=== PATIENT | female | born 1975 | race American Indian/Alaskan Native ===

== ENCOUNTER 2021-05-04 18:24 | Emergency (ER) | payer MEDICAID ==
[2021-05-04] MEDS ORDERED: FAMOTIDINE 20 MG TAB PO ONE (19:58)
[2021-05-04] MEDS ORDERED: ALUM-MAG HYDROXIDE-SIMETHICONE 200-200-20MG/5ML ORAL LIQD 30 ML PO ONE (19:58)
[2021-05-04] MEDS ORDERED: ASPIRIN 81 MG TAB CHEW PO ONE (19:59)
--- NOTE | 2021-05-04 20:35 | Emergency Department Report ---
ED Abdominal Pain HPI - General Chief Complaint: Chest Pain Stated Complaint: CHEST PAINS, STOMACH PUI?: No Source: patient Mode of arrival: Ambulatory Limitations: No Limitations - History of Present Illness Initial Comments: Patient is a 45-year-old -[place] female with past medical history of GERD who presents to the ED with complaint of acute onset persistent epigastric pain and pressure, radiating to the substernal chest wall and to her throat for the last 3 days. Patient states that the symptoms are worsened with food. Patient also complains of nausea and lack of appetite. Patient described the pain as burning and pressure-like with some esophageal spasm which she perceives as palpitations. Patient denies fever, chills, cough, vomiting, shortness of breath, dizziness, syncope, headache, back pain, diaphoresis, diarrhea or neck pain. Patient states that she usually takes Rain-Larue and Pepto-Bismol with no relief. MD Complaint: abdominal pain (Epigastric pain), other (Substernal chest pain with nausea) -: Sudden, days(s) (3) Location: epigastric Radiation: chest Migration to: epigastric, other (Substernal chest ) Severity scale (0 -10): 7 Quality: aching, burning, other (Pressure-like) Consistency: constant Improves With: nothing Worsens With: eating Associated Symptoms: denies other symptoms, nausea, anorexia. denies: vomiting, diarrhea, fever, chills, constipation, dysuria, hematemesis, hematochezia, melena, hematuria Treatments Prior to Arrival: NSAIDs - Related Data LMP Date: 04/09/21 Previous Rx's Medication Instructions Recorded Last Taken Type Amoxicillin [Amoxicillin TAB] 875 mg PO Q12H #20 tablet 05/04/21 Unknown Rx Famotidine [Pepcid] 20 mg PO BID #60 tablet 05/04/21 Unknown Rx Ibuprofen [Motrin] 600 mg PO Q8H PRN #24 tablet 05/04/21 Unknown Rx Omeprazole 40 mg PO DAILY #40 capsule. 05/04/21 Unknown Rx Allergies Allergy/AdvReac Type Severity Reaction Status Date / Time No Known Allergies Allergy Unverified 05/04/21 18:41 ED Review of Systems ROS: Stated complaint: CHEST PAINS, STOMACH Other details as noted in HPI Constitutional: denies: chills, fever Eyes: denies: eye pain, eye discharge, vision change ENT: throat pain, congestion (Nasal and sinus congestion with severe right maxillary sinus pain). denies: ear pain Respiratory: denies: cough, shortness of breath, wheezing Cardiovascular: chest pain (Substernal pressure-like pain). denies: palpitations Endocrine: no symptoms reported Gastrointestinal: abdominal pain (Epigastric pain), nausea. denies: vomiting, diarrhea Genitourinary: denies: urgency, dysuria, discharge Musculoskeletal: denies: back pain, joint swelling, arthralgia Skin: denies: rash, lesions Neurological: denies: headache, weakness, paresthesias Psychiatric: denies: anxiety, depression Hematological/Lymphatic: denies: easy bleeding, easy bruising ED Past Medical Hx - Social History Smoking Status: Current Some Day Smoker Substance Use Type: Marijuana - Medications Home Medications: Home Medications Medication Instructions Recorded Confirmed Last Taken Type Amoxicillin [Amoxicillin TAB] 875 mg PO Q12H #20 tablet 05/04/21 Unknown Rx Famotidine [Pepcid] 20 mg PO BID #60 tablet 05/04/21 Unknown Rx Ibuprofen [Motrin] 600 mg PO Q8H PRN #24 tablet 05/04/21 Unknown Rx Omeprazole 40 mg PO DAILY #40 capsule. 05/04/21 Unknown Rx ED Physical Exam - General Limitations: No Limitations General appearance: alert, in no apparent distress - Head Head exam: Present: atraumatic, normocephalic, normal inspection - Eye Eye exam: Present: normal appearance, PERRL, EOMI Pupils: Present: normal accommodation - ENT ENT exam: Present: normal orophraynx, mucous membranes moist, TM's normal bilaterally, normal external ear exam, other (Grossly congested nasal passages; palpable severe right maxillary sinus tenderness) - Neck Neck exam: Present: normal inspection, full ROM. Absent: tenderness, lymphadenopathy - Respiratory Respiratory exam: Present: normal lung sounds bilaterally, chest wall tenderness (Palpable reproducible anterior). Absent: respiratory distress, wheezes, rales, rhonchi, stridor, accessory muscle use, decreased breath sounds, prolonged expiratory - Cardiovascular Cardiovascular Exam: Present: regular rate, normal rhythm, normal heart sounds. Absent: systolic murmur, diastolic murmur, rubs, gallop - GI/Abdominal GI/Abdominal exam: Present: soft, tenderness (Palpable mild epigastric tenderness), normal bowel sounds. Absent: hyperactive bowel sounds, hypoactive bowel sounds, organomegaly - Extremities Exam Extremities exam: Present: normal inspection, full ROM, normal capillary refill - Back Exam Back exam: Present: normal inspection, full ROM. Absent: tenderness, CVA tenderness (R), CVA tenderness (L), muscle spasm, paraspinal tenderness, vertebral tenderness, rash noted - Neurological Exam Neurological exam: Present: alert, oriented X3, CN II-XII intact, normal gait, r eflexes normal - Psychiatric Psychiatric exam: Present: normal affect, normal mood - Skin Skin exam: Present: warm, dry, intact, normal color. Absent: rash ED Course Vital Signs 05/04/21 05/04/21 18:38 20:15 Temperature 99.1 F Pulse Rate 93 H Respiratory 16 18 Rate Blood Pressure 146/104 [Left] O2 Sat by Pulse 100 100 Oximetry ED Medical Decision Making - Lab Data Result diagrams: 05/04/21 20:05 05/04/21 20:05 - EKG Data EKG shows normal: sinus rhythm Rate: normal - EKG Data Interpretation: normal EKG 05/04/21 21:22 EKG shows normal sinus rhythm with a ventricular rate of 67 bpm and nonspecific T wave abnormalities in the anterior leads but no pathological Q waves. - Radiology Data Radiology results: report reviewed, [place] [address] XRay Report Signed Patient: TOMMY MENDENHALL MR#: [id number] : 1975 Acct:[id number] Age/Sex: 45 / F ADM Date: 05/04/21 Loc: ED Attending Dr: Ordering Physician: DECLAN CHÁVEZ Date of Service: 05/04/21 Procedure(s): XR chest 1V ap Accession Number(s): [id number] cc: DECLAN CHÁVEZ Fluoro Time In Minutes: CHEST 1 VIEW INDICATION / CLINICAL INFORMATION: Epigastric and chest pain. FINDINGS: SUPPORT DEVICES: None. HEART / MEDIASTINUM: No significant abnormality. LUNGS / PLEURA: No significant pulmonary or pleural abnormality. No pneumothorax. ADDITIONAL FINDINGS: No significant additional findings. IMPRESSION: 1. No acute findings. Signer Name: Jesse Wilson MD Signed: 05/04/2021 8:29 PM Workstation Name: [id number] Transcribed By: DAYDAY Dictated By: Jesse Wilson MD Electronically Authenticated By: Jesse Wilson MD Signed Date/Time: 05/04/212028 DD/ 28 TD/TT: Print - Medical Decision Making This is a 45-year-old -[place] female with past medical history of GERD who presents to the ED with complaint of acute onset persistent epigastric pain and pressure, radiating to the substernal chest wall and to her throat for the last 3 days. Patient states that the symptoms are worsened with food. Patient also complains of nausea and lack of appetite. Patient described the pain as burning and pressure-like with some esophageal spasm which she perceives as palpitations. In the ED, patient is alert and oriented x3 and is not in any distress. Patient is hemodynamically stable. Patient was treated with antacids in the ED. The chest x-ray shows no acute cardiopulmonary abnormalities or pneumonitis. The EKG shows normal sinus rhythm with a ventricular rate of 67 bpm and nonspecific T wave abnormalities in the anterior leads, but no pathological Q waves. All lab test results were reviewed and are all nonactionable. On reevaluation, patient's pain is well controlled medications. Patient symptoms are likely due to GERD resulting in esophageal spasm. The patient's heart score is 0 and patient is PERC negative per Wells criteria. Patient was therefore discharged home on antacids, and advised to follow-up with her primary care physician in 5 to 7 days for reevaluation. Patient is advised return to the ED immediately if symptoms get worse. - Differential Diagnosis GERD; ACS; gastritis; gastroenteritis; esophageal spasm Critical care attestation.: If time is entered above; I have spent that time in minutes in the direct care of this critically ill patient, excluding procedure time. ED Disposition Clinical Impression: Acute epigastric pain, Acute nonspecific chest pain with low risk of coronary artery disease, Acute non-recurrent maxillary sinusitis GERD (gastroesophageal reflux disease) Qualifiers: Esophagitis presence: esophagitis presence not specified Qualified Code(s): K21.9 - Gastro-esophageal reflux disease without esophagitis Disposition: HOME / SELF CARE / HOMELESS Is pt being admited?: No Does the pt Need Aspirin: No Condition: Stable Instructions: Abdominal Pain, Adult, [id number], Gastroesophageal Reflux D isease, Adult, [id number], Chest Pain (ED), Nonspecific Chest Pain, Adult, [id number], Sinusitis, Adult, [id number], Upper Respiratory Infection, Adult, [id number] Additional Instructions: All lab test results were reviewed and are all nonactionable. Chest x-ray sh owed no acute cardiopulmonary abnormalities or pneumonitis. EKG shows normal sinus rhythm with a ventricular rate of 67 bpm and nonspecific T wave abnormalities in anterior leads but no pathological Q waves. Your symptoms are likely due to GERD complications resulting in discomfort in your chest and esophageal spasm. Therefore take medications as advised, drink plenty of fluids, follow-up with your primary care physician in 5 to 7 days for reevaluation. Return to the ED immediately if symptoms get worse. Prescriptions: Amoxicillin [Amoxicillin TAB] 875 mg PO Q12H #20 tablet Ibuprofen [Motrin] 600 mg PO Q8H PRN #24 tablet PRN Reason: Pain Omeprazole 40 mg PO DAILY #40 capsule. Famotidine [Pepcid] 20 mg PO BID #60 tablet Referrals: PRIMARY CARE, [Primary Care Provider] - 3-5 Days [facility] [Provider Group] - 3-5 Days Time of Disposition: 21:28 Print Language: HUNGARIAN
[2021-05-04 20:43] LABS: Basophils # (Auto) 0.1 K/mm3 (0.0-0.1); Basophils % (Auto) 0.9 % (0.0-1.8); Eosinophils # (Auto) 0.4 K/mm3 (0.0-0.4); Eosinophils % (Auto) 5.4 % (0.0-4.3); Hematocrit 36.1 % (30.3-42.9); Lymphocytes # (Auto) 3.2 K/mm3 (1.2-5.4); Lymphocytes % (Auto) 44.5 % (13.4-35.0); Mean Corpuscular HGB Conc 33 % (30-34); Mean Corpuscular Volume 79 fl (79-97); Monocytes # (Auto) 0.7 K/mm3 (0.0-0.8); Monocytes % (Auto) 9.9 % (0.0-7.3); Platelet Count 361 K/mm3 (140-440); Red Blood Count 4.57 M/mm3 (3.65-5.03); Red Cell Distribution Width 17.1 % (13.2-15.2)
[2021-05-04 21:15] LABS: Alanine Aminotransferase 10 units/L (7-56); Albumin 4.4 g/dL (3.9-5); BUN/Creatinine Ratio 11; Blood Urea Nitrogen 9 mg/dL (7-17); Calcium 9.6 mg/dL (8.4-10.2); Hemolysis Index 65
[2021-05-04 21:45] VITALS: BP 159/98
--- NOTE | 2021-05-11 14:04 | Electrocardiograph Report ---
[facility] Test Date: 2021-05-04 Test Time: 18:45:58 Pat Name: TOMMY MENDENHALL Department: Room: Gender: F [employer]: DEVEN : 1975 Requested By: LEONARD WILLARD Order Number: [id number] Reading MD: Diana Ruiz Measurements Intervals [place] Rate: 67 P: 32 DC: 147 QRS: 64 QRSD: 101 T: 32 QT: 386 QTc: 408 Interpretive Statements Sinus rhythm Normal ECG No previous ECG available for comparison Electronically Signed On 05-11-2021 14:04:12 EDT by Diana Ruiz
== END 2021-05-04 21:45 | disposition home or self-care (01) ==
LOC: ED 18:24
DX: K21.9 Gastro-esophageal reflux disease without esophagitis (principal); I25.10 Atherosclerotic heart disease of native coronary artery without angina pectoris; J32.0 Chronic maxillary sinusitis; F17.200 Nicotine dependence, unspecified, uncomplicated; F12.90 Cannabis use, unspecified, uncomplicated; Z79.899 Other long term (current) drug therapy
CPT/HCPCS: 36415; 71045; 80053; 84484; 84703; 85025; 93005; 99283